=== PATIENT | female | born 1965 | race Caucasian/White ===

== ENCOUNTER 2018-11-23 13:57 | Emergency (ER) | payer SELFPAY ==
[~2018-11-23] VITALS: Ht 167.6 cm; Wt 74.0 kg
[2018-11-23 14:13] VITALS: Ht 167.6 cm; Wt 74.0 kg
[2018-11-23] MEDS ORDERED: morphine 4 MG/ML VIAL IV STA (16:52)
[2018-11-23] MEDS ORDERED: ONDANSETRON 4 MG INJ IV STA (16:52)
[2018-11-23] MEDS ORDERED: SOD CHLORIDE 0.9% 1,000 ML IV STA (16:52)
[2018-11-23] MEDS ORDERED: morphine 2 MG INJ IV STA (18:39)
[2018-11-23] MEDS ORDERED: CEFTRIAXONE 1 GM/50 ML (PMX) 50 ML IVPB ONE (19:00)
[2018-11-23] MEDS ORDERED: HYDR-4011 PO (21:00)
[2018-11-23] MEDS ORDERED: IBUP-1542 PO (21:00)
[2018-11-23] MEDS ORDERED: CIPR500T4 PO (21:00)
--- NOTE | 2018-11-23 21:07 | ERD ---
ER Documentation Chief Complaint Chief Complaint pt is bib daughter with c/o bilat flank pain starting a few days ago ROS All systems reviewed and are negative except as per history of present illness. Medications Home Meds Active Scripts Ibuprofen* (Motrin*) 600 Mg Tab, 600 MG PO Q6H PRN for PAIN AND OR ELEVATED TEMP, #30 TAB Prov:ELISA LLANOS DO 11/23/18 Hydrocodone/Acetaminophen ([place] 5-325 Tablet) 1 Each Tablet, 1 TAB PO Q6H PRN for PAIN, #10 TAB Prov:ELISA LLANOS DO 11/23/18 Ciprofloxacin Hcl* (Ciprofloxacin Hcl*) 500 Mg Tablet, 500 MG PO BID for 7 Days, #14 TAB Prov:ELISA LLANOS DO 11/23/18 Allergies Allergies: Coded Allergies: No Known Allergy (Unverified , 11/23/18) PMhx/Soc History of Surgery: Yes (right ear sx) Anesthesia Reaction: No Hx Miscellaneous Medical Probl: Yes (kidney stones) Hx Alcohol Use: No Hx Substance Use: No Hx Tobacco Use: No Smoking Status: Never smoker Physical Exam Vitals Vital Signs Date Temp Pulse Resp B/P (MAP) Pulse Ox O2 O2 Flow FiO2 Time Delivery Rate 11/23/18 98.8 65 18 126/68 99 14:13 (87) Physical Exam Const: No acute distress Head: Atraumatic Eyes: Normal Conjunctiva ENT: Normal External Ears, Nose and Mouth. Neck: Full range of motion. No meningismus. Resp: Clear to auscultation bilaterally Cardio: Regular rate and rhythm, no murmurs Abd: Soft, non tender, non distended. Normal bowel sounds Skin: No petechiae or rashes Back: No midline or flank tenderness Ext: No cyanosis, or edema Neur: Awake and alert Psych: Normal Mood and Affect Result Diagram: 11/23/18 1705 11/23/18 1705 Results 24 hrs Laboratory Tests Test 11/23/18 17:05 11/23/18 17:08 White Blood Count 9.0 10^3/ul Red Blood Count 4.66 10^6/ul Hemoglobin 13.6 g/dl Hematocrit 41.6 % Mean Corpuscular Volume 89.3 fl Mean Corpuscular Hemoglobin 29.2 pg Mean Corpuscular Hemoglobin Concent 32.7 g/dl Red Cell Distribution Width 13.3 % Platelet Count 327 10^3/UL Mean Platelet Volume 9.5 fl Immature Granulocytes % 0.400 % Neutrophils % 68.0 % Lymphocytes % 20.7 % Monocytes % 8.2 % Eosinophils % 1.9 % Basophils % 0.8 % Nucleated Red Blood Cells % 0.0 /100WBC Immature Granulocytes # 0.040 10^3/ul Neutrophils # 6.1 10^3/ul Lymphocytes # 1.9 10^3/ul Monocytes # 0.7 10^3/ul Eosinophils # 0.2 10^3/ul Basophils # 0.1 10^3/ul Nucleated Red Blood Cells # 0.0 10^3/ul Urine Color YELLOW Urine Clarity CLOUDY Urine pH 5.0 Urine Specific [place] 1.017 Urine Ketones NEGATIVE mg/dL Urine Nitrite NEGATIVE mg/dL Urine Bilirubin NEGATIVE mg/dL Urine Urobilinogen NEGATIVE mg/dL Urine Leukocyte Esterase TRACE [place]/ul Urine Microscopic RBC 5 /HPF Urine Microscopic WBC 13 /HPF Urine Squamous Epithelial Cells MODERATE /HPF Urine Bacteria FEW /HPF Urine Mucus FEW /HPF Urine Hemoglobin 1+ mg/dL Urine Glucose NEGATIVE mg/dL Urine Total Protein NEGATIVE mg/dl Sodium Level 142 mmol/L Potassium Level 4.0 mmol/L Chloride Level 108 mmol/L Carbon Dioxide Level 25 mmol/L Anion Gap 9 Blood Urea Nitrogen 18 mg/dl Creatinine 0.89 mg/dl Est Glomerular Filtrat Rate mL/min > 60 mL/min Glucose Level 95 mg/dl Calcium Level 9.5 mg/dl Total Bilirubin 0.5 mg/dl Direct Bilirubin 0.00 mg/dl Indirect Bilirubin 0.5 mg/dl Aspartate Amino Transf (AST/SGOT) 25 IU/L Alanine Aminotransferase (ALT/SGPT) 35 IU/L Alkaline Phosphatase 92 IU/L Total Protein 7.7 g/dl Albumin 4.3 g/dl Globulin 3.40 g/dl Albumin/Globulin Ratio 1.26 Lipase 122 U/L POC Beta HCG, Qualitative NEGATIVE Current Medications Medications Dose Sig/Brandon Start Time Status Last (Trade) Ordered Route PRN Stop Time Admin Dose Reason Admin Sodium 1,000 ml @ Q1H STAT 11/23/18 DC 11/23/18 Chloride 1,000 mls/hr IV 16:52 17:10 11/23/18 17:51 Morphine 4 mg ONCE STAT 11/23/18 DC 11/23/18 Sulfate IV 16:52 17:10 (morphine) 11/23/18 16:55 Ondansetron 4 mg ONCE STAT 11/23/18 DC 11/23/18 HCl (Zofran IV 16:52 17:10 Inj) 11/23/18 16:55 Morphine 2 mg ONCE STAT 11/23/18 DC 11/23/18 Sulfate IV 18:39 18:53 (morphine) 11/23/18 18:40 Ceftriaxone 50 ml @ ONCE ONCE 11/23/18 DC 11/23/18 Sodium 100 mls/hr IVPB 19:00 18:50 11/23/18 19:29 Departure Diagnosis: Primary Impression: Pyelonephritis Condition: Fair Patient Instructions: Pyelonephritis, Female (Adult) Referrals: [facility] YOU HAVE RECEIVED A MEDICAL SCREENING EXAM AND THE RESULTS INDICATE THAT YOU DO NOT HAVE A CONDITION THAT REQUIRES URGENT TREATMENT IN THE EMERGENCY DEPARTMENT. FURTHER EVALUATION AND TREATMENT OF YOUR CONDITION CAN WAIT UNTIL YOU ARE SEEN IN YOUR DOCTORS OFFICE WITHIN THE NEXT 1-2 DAYS. IT IS YOUR RESPONSIBILITY TO MAKE AN APPOINTMENT FOR FOLOW-UP CARE. IF YOU HAVE A PRIMARY DOCTOR --you should call your primary doctor and schedule an appointment IF YOU DO NOT HAVE A PRIMARY DOCTOR YOU CAN CALL OUR PHYSICIAN REFERRAL HOTLINE AT IF YOU CAN NOT AFFORD TO SEE A PHYSICIAN YOU CAN CHOSE FROM THE FOLLOWING [facility] [address] [facility]. [facility] [address] [facility]. [facility] [address] [facility]. [facility] [address] [facility]. [facility] [address] [facility]. [facility]. [address] Additional Instructions: Llame al doctor MAANA y gem lydia RODRIGO PARA DENTRO DE 1-2 RODRIGUEZ.Dgale a la secretaria que nosotros le instruimos hacer esta rodrigo.Avise o llame si joe condicin se empeora antes de la ordrigo. Regresa aqui si peor o no mejor. ELISA LLANOS 30, 2019 21:07
[2018-11-23] MEDS ORDERED: HYDROCODONE/APAP (5/325) TAB PO ONE (22:00)
[2018-11-23] MEDS ORDERED: HYDROmorphONE 2 MG/ML SYG IV STA (23:29)
[2018-11-23] MEDS ORDERED: LORAZEPAM 2 MG INJ IV ONE (23:30)
[2018-11-23] MEDS ORDERED: DIAZEPAM 5 MG/ML SYG IM ONE (23:30)
[2018-11-24 00:42] VITALS: BP 104/79; PULSE 52; RESP 17
== END 2018-11-24 00:44 | disposition home or self-care (01) ==
LOC: FTE 13:57 → E/R 11-24 00:44
DX: N12 Tubulo-interstitial nephritis, not specified as acute or chronic (principal)
CPT/HCPCS: 74176; 80053; 81001; 81025; 83690; 85025; J0696; J1170; J2060; J2270; J2405; J7030; 36415; 96361; 96365; 96375; 96376